=== PATIENT | male | born 2000 | race Caucasian/White ===

== ENCOUNTER 2019-04-16 16:55 | Outpatient (CLI) | payer SELFPAY ==
[2019-04-16 19:04] LABS: ALT 52 U/L (16-63); AST 35 U/L (15-37); Albumin 4.5 g/dL (3.4-5.0); Alkaline Phosphatase 68 U/L (46-116); Bilirubin, Direct 0.12 mg/dL (0.00-0.20); Bilirubin, Total 0.5 mg/dL (0.2-1.0); TSH (W/Ref FT4) 15.88 uIU/mL (0.36-3.74); Total Protein 7.7 g/dL (6.4-8.2)
[2019-04-16 19:24] LABS: FREE T4 0.93 ng/dL (0.76-1.46)
== END 2019-04-16 17:15 ==
PROVIDERS: PCP Family Medicine; Visit Provider Family Medicine
DX: E06.3 Autoimmune thyroiditis (principal); B35.1 Tinea unguium
CPT/HCPCS: 36415; 80076; 84439; 84443

== ENCOUNTER 2019-08-23 12:09 | Outpatient (CLI) | payer SELFPAY ==
[2019-08-23 13:30] LABS: TSH (W/Ref FT4) 0.46 uIU/mL (0.36-3.74)
== END 2019-08-23 12:29 ==
PROVIDERS: PCP Family Medicine; Visit Provider Family Medicine
DX: E06.3 Autoimmune thyroiditis (principal)
CPT/HCPCS: 36415; 84443

== ENCOUNTER 2021-02-16 03:08 | Outpatient (CLI) | payer SELFPAY ==
[2021-02-16 12:53] LABS: TSH (W/Ref FT4) 1.04 uIU/mL (0.36-3.74)
== END 2021-02-16 03:09 | disposition home or self-care (01) ==
LOC: LOS 03:09
PROVIDERS: PCP Family Medicine; Visit Provider Emergency Medicine
DX: E03.9 Hypothyroidism, unspecified (principal)
CPT/HCPCS: 36415; 84443

== ENCOUNTER 2022-08-04 17:04 | Outpatient (CLI) | payer OTHER, SELFPAY ==
[2022-08-04 17:44] LABS: Ferritin 322 ng/mL (26-388); Folate 18.4 ng/mL (8.6-20.0); TSH (W/Ref FT4) 1.03 uIU/mL (0.36-3.74); Vitamin B12 435 pg/mL (193-986)
[2022-08-04 17:58] LABS: Iron 108 ug/dL (65-175); Total Iron Binding Capacity 285 ug/dL (250-450); Transferrin Sat 38 % (20-55)
[2022-08-04 18:08] LABS: C-Reactive Protein < 0.05 mg/dL (0.0-0.3)
== END 2022-08-04 17:05 | disposition home or self-care (01) ==
LOC: LBO 17:05
PROVIDERS: PCP Family Medicine; Visit Provider Surgery
DX: E03.9 Hypothyroidism, unspecified (principal); K62.5 Hemorrhage of anus and rectum; R03.0 Elevated blood-pressure reading, without diagnosis of hypertension; Z68.37 Body mass index [BMI] 37.0-37.9, adult; R13.10 Dysphagia, unspecified
CPT/HCPCS: 36415; 82607; 82728; 82746; 83540; 83550; 84443; 86140

== ENCOUNTER 2022-11-25 12:05 | Outpatient (CLI) | payer OTHER, SELFPAY ==
--- NOTE | 2022-11-25 10:00 | DI.RAD_ITS ---
Exam(s) XR FINGER RT RING EXAM: XR FINGER RT RING CLINICAL HISTORY: evaluate for bony involvement/fx, NAIL AVULSION FINGER, INJURY, S61.309A,. TECHNIQUE: 2D digital imaging was performed of the right finger. Three views were obtained. PA/AP, oblique, and lateral views were obtained. COMPARISON: No exams were available for comparison FINDINGS: BONES: There is an acute nondisplaced terminal tuft fracture of the 4th finger. No bony destructive lesion is seen. JOINTS: No dislocation present. SOFT TISSUE: Soft tissue swelling of the 4th finger. No radiopaque foreign body. IMPRESSION: Acute fracture of the terminal tuft of the distal phalanx of the 4th finger. DATA REPOSITORY: RADIATION DOSE DELIVERED:
== END 2022-11-25 12:25 ==
LOC: DI 12:06
PROVIDERS: PCP Family Medicine; Visit Provider Nurse Practitioner Family
DX: S62.634A Displaced fracture of distal phalanx of right ring finger, initial encounter for closed fracture (principal); Y99.0 Civilian activity done for income or pay; X58.XXXA Exposure to other specified factors, initial encounter
CPT/HCPCS: 73140

== ENCOUNTER 2024-02-02 16:28 | Outpatient (CLI) | payer OTHER, SELFPAY ==
[2024-02-02 16:12] LABS: Abs Immature Grans 0.02 10^3/uL (0.0-0.06); Absolute Basophil Count 0.08 10^3/uL (0.0-0.2); Absolute Eosinophil Count 0.27 10^3/uL (0.0-0.7); Absolute Monocyte Count 0.54 10^3/uL (0.1-0.8); Absolute Neutrophil Count 3.47 10^3/uL (1.2-6.7); Basophils % 1.1 %; Eosinophils % 3.7 %; HCT 42.8 % (40.0-50.0); HGB 14.9 g/dL (13.5-17.5); Immature Grans % 0.3 %; Lymphocytes % 40.7 %; MCH 30.7 pg (27.0-33.0); MCHC 34.8 % (32.0-36.0); MCV 88 fL (80-95); MPV 9.7 fL (8.0-11.0); Monocytes % 7.3 %; Neutrophils % 46.9 %; Platelet Count 186 10^3/uL (130-400); RBC 4.86 10^6/uL (4.36-5.78); RDW 12.7 % (11.8-14.1); RDW-SD 40.7 fL; WBC 7.38 10^3/uL (4.4-10.8)
== END 2024-02-02 16:29 | disposition home or self-care (01) ==
LOC: LBO 16:28
PROVIDERS: PCP Family Medicine; Visit Provider Nurse Practitioner Family
DX: J34.89 Other specified disorders of nose and nasal sinuses (principal)
CPT/HCPCS: 36415; 85025